=== PATIENT | male | born 1995 | race American Indian/Alaskan Native ===

== ENCOUNTER 2019-11-01 14:38 | Emergency (ER) | payer SELFPAY ==
[2019-11-01 16:10] VITALS: BP 149/79
--- NOTE | 2019-11-01 16:11 | Emergency Department Report ---
Chief Complaint: Urogenital-Male Stated Complaint: POSS STD - HPI History of Present Illness: 24 yo M presents to ED requesting STD check. Reports unprotected sex. Reports dysuria x 1 month. Denies abdominal pain, fever, urinary frequency. - ROS Review of Systems: Comment: All other systems reviewed and negative Constitutional: denies: chills, fever Genitourinary: reports mild dysuria. denies: frequency, penile discharge, hematuria - Exam Physical Exam: - General Limitations: No Limitations General appearance: alert, in no apparent distress - Head Head exam: Present: atraumatic, normocephalic - Eye Eye exam: Present: normal appearance, EOMI - ENT ENT exam: Present: mucous membranes moist - Neck Neck exam: Present: normal inspection - Respiratory Respiratory exam: Present: normal lung sounds bilaterally. Absent: respiratory distress - Cardiovascular Cardiovascular Exam: Present: regular rate, normal rhythm - GI/Abdominal GI/Abdominal exam: Present: soft. Absent: distended, tenderness - : deferred - Extremities Exam Extremities exam: Present: normal inspection - Back Exam Back exam: Present: normal range of motion. Absent: tenderness - Neurological Exam Neurological exam: Present: alert, oriented X3 - Psychiatric Psychiatric exam: Present: normal affect, normal mood - Skin Skin exam: Present: warm, dry, intact, normal color MSE screening note: Focused history and physical exam performed. Due to findings the following was ordered: 24 yo M w/ dysuria x 1 month, described as "tingling" requesting STD check. Denies abdominal pain, fever. Vitals are normal. Pt does not have an emergent medical condition at this time. Outpt resources given. Advised follow-up. Return precautions given. ED Medical Decision Making - Medical Decision Making 24 yo M w/ dysuria x 1 month, described as "tingling" requesting STD check. Denies abdominal pain, fever. Vitals are normal. Pt does not have an emergent medical condition at this time. Outpt resources given. Advised follow-up. Return precautions given. ED Disposition for MSE Clinical Impression: Concern about STD in male without diagnosis Disposition: MED SCREENING EXAM-LEFT Is pt being admited?: No Condition: Stable Instructions: Sexually Transmitted Diseases (ED), Safe Sex (ED), Dysuria (ED) Referrals: [facility] [Outside] - 3-5 Days [facility] [Provider Group] - 3-5 Days KIMBERLY GREGG MD [Staff Physician] - 3-5 Days [facility] [Referring] - 3-5 Days Time of Disposition: 16:10
== END 2019-11-01 17:09 | disposition left against medical advice (07) ==
LOC: ED 14:38
DX: R30.0 Dysuria (principal)
CPT/HCPCS: 99282